=== PATIENT | female | born 1965 | race Caucasian/White ===

== ENCOUNTER 2019-05-26 07:53 | Observation (INO) ==
[2019-05-26] MEDS ORDERED: 0.9 % Sodium Chloride 1,000 ML ONE (10:55)
[2019-05-26] MEDS ORDERED: 0.9 % Sodium Chloride 1,000 ML IVC SCH (13:30)
[2019-05-26] MEDS ORDERED: *HR* HYDROcodone/Acet 5/325 mg TABLET PO PRN (13:44)
[2019-05-26] MEDS ORDERED: Morphine Sulfate 2 MG/ML SYRINGE IVP PRN (13:44)
[2019-05-26] MEDS ORDERED: Ondansetron 4 MG/2 ML VIAL ONE (14:05)
[2019-05-26] MEDS ORDERED: *HR* Rocuronium Bromide 50 MG/5 ML VIAL ONE (14:05)
[2019-05-26] MEDS ORDERED: Lidocaine -MPF 2% 2 ML VIAL ONE (14:05)
[2019-05-26] MEDS ORDERED: *HR* FentaNYL (PF) 100 MCG/2 ML VIAL ONE ×2 (14:05→14:58)
[2019-05-26] MEDS ORDERED: *HR* Succinylcholine 200 MG/10 ML VIAL IVP ONE (14:05)
[2019-05-26] MEDS ORDERED: Dexamethasone 4 MG/ML VIAL ONE (14:05)
[2019-05-26] MEDS ORDERED: *HR* Midazolam HCl 2 MG/2 ML VIAL ONE (14:06)
[2019-05-26] MEDS ORDERED: *HR* Propofol 200 MG/20 ML VIAL IVP ONE (14:06)
[2019-05-26] MEDS ORDERED: Lidocaine HCL 4 ML Topical Solution (Laryng-O-Jet Kit Sterile Pak) TP ONE (14:08)
[2019-05-26] MEDS ORDERED: Bupivacaine/EPI 1:200k 0.5%PF 30 ML VIAL ONE (14:19)
[2019-05-26] MEDS ORDERED: EPHEDrine 50 MG/ML VIAL ONE (14:42)
[2019-05-26] MEDS ORDERED: Piperacillin/Tazobactam 3.375 GM in 0.9 % Sodium Chloride Mini Bag 100 ML IVPB SCH (16:00)
[2019-05-26] MEDS ORDERED: Ondansetron 4 MG/2 ML VIAL IVP PRN (17:31)
[2019-05-26] MEDS ORDERED: *HR* OxyCODONE/APAP 5/325 TABLET PO PRN (17:31)
[2019-05-26] MEDS: Ketorolac 15 MG/ML VIAL IVP SCH ×2 (18:51→23:39)
[2019-05-26] MEDS: Piperacillin/Tazobactam 3.375 GM in 0.9 % Sodium Chloride Mini Bag 100 ML IVPB SCH (23:39)
[2019-05-26] MEDS: 0.9 % Sodium Chloride 1,000 ML IVC SCH (23:39)
[2019-05-27] MEDS: Ketorolac 15 MG/ML VIAL IVP SCH ×2 (05:10→13:33)
[2019-05-27] MEDS: Piperacillin/Tazobactam 3.375 GM in 0.9 % Sodium Chloride Mini Bag 100 ML IVPB SCH (08:37)
[2019-05-27] MEDS: 0.9 % Sodium Chloride 1,000 ML IVC SCH (08:41)
[2019-05-27] MEDS ORDERED: Metoprolol XL (24 HR) Succ 50 MG TAB.ER.24H PO SCH (09:00)
[2019-05-27 15:28] VITALS: BP 107/69
== END 2019-05-27 17:58 | disposition home or self-care (01) ==
LOC: 3ANU
PROVIDERS: ADMIT Surgery; ATTEND Surgery